=== PATIENT | male | born 1960 | race Two or more races ===

== ENCOUNTER 2020-07-05 07:03 | Day surgery (SDC) | payer BC ==
[2020-07-05] MEDS ORDERED: Propofol 200 MG/20 ML SDV ONE (07:16)
[2020-07-05] MEDS ORDERED: fentaNYL 100 MCG/2 ML SDV ONE (07:16)
[2020-07-05] MEDS ORDERED: Midazolam 1 MG/ML 2 ML SDV ONE (07:16)
[2020-07-05] MEDS ORDERED: Dextrose 5%-Lactated Ringers 1,000 ML IV SCH (07:45)
--- NOTE | 2020-07-11 12:01 | OR ---
DATE OF PROCEDURE: 07/05/2020 SURGEON: Franco Neff MD PREOPERATIVE DIAGNOSIS: Inadequate Cologuard test. POSTOPERATIVE DIAGNOSES: 1. Inadequate Cologuard test. 2. Two small polyps involving the ascending and transverse colon. OPERATIVE PROCEDURE: Flexible colonoscopy with polypectomy x2. ANESTHESIA: IV sedation. INDICATION FOR PROCEDURE: This is a 59-year-old male presenting for screening colonoscopy. He had Cologuard examination which was felt to be an inadequate specimen and was referred for a colonoscopy with biopsies and/or polypectomy as indicated. Potential risks including bleeding and perforation were discussed, and the patient wishes to proceed. DETAILS OF PROCEDURE: The patient was taken to the operating room and placed in a left lateral decubitus position. Initial digital rectal examination was accomplished which was unremarkable. Colonoscope was then passed into the rectum revealing uncomplicated hemorrhoidal columns. Scope was eventually passed to the level of the cecum. The prep was quite good. Only a small amount of liquid stool was present. There were no areas of diverticular disease, no areas of colitis. Two small polyps measuring in the range of 2 to 4 mm were located; one in the ascending colon, one in the mid transverse colon. Both of these were excised by means of cautery snare technique and delivered for pathologic examination. The scope was then withdrawn. No additional abnormalities were noted and the procedure was then concluded. Assuming both polyps are likely premalignant, but benign, i.e. adenomatous, but not malignant, a followup colonoscopy would be warranted in 3 years. Franco Neff MD /[id number]
== END 2020-07-05 10:38 | disposition home or self-care (01) ==
LOC: JP.SDS 07:03
PROVIDERS: ATTEND Surgery
DX: K63.5 Polyp of colon (principal); K64.9 Unspecified hemorrhoids; I10 Essential (primary) hypertension; E66.01 Morbid (severe) obesity due to excess calories; Z68.42 Body mass index [BMI] 45.0-49.9, adult
CPT/HCPCS: 45385; J2250; J2704; J3010; J7121